=== PATIENT | female | born 1975 | race African-American/Black ===

== ENCOUNTER 2018-10-01 10:15 | Inpatient (IN) | payer OTHER ==
[2018-10-01 10:44] VITALS: BMI 32.6
--- NOTE | 2018-10-01 11:40 | HP ---
CIWA Score Nausea/Vomitin-Mild Nausea/No Vomiting Muscle Tremors: 3 Anxiety: 4-Mod. Anxious/Guarded Agitation: 3 Paroxysmal Sweats: 2 Orientation: 0-Oriented Tacttile Disturbances: 2-Mild Itch/Numbness/Burn Auditory Disturbances: 0-None Visual Disturbances: 0-None Headache: 3-Moderate CIWA-Ar Total Score: 18 - Admission Criteria OASAS Guidelines: Admission for Medically Managed Detox: Requires at least one of the followin. CIWA greater than 12 2. Seizures within the past 24 hours 3. Delirium tremens within the past 24 hours 4. Hallucinations within the past 24 hours 5. Acute intervention needed for co occurring medical disorder 6. Acute intervention needed for co occurring psychiatric disorder 7. Severe withdrawal that cannot be handled at a lower level of care (continued vomiting, continued diarrhea, abnormal vital signs) requiring intravenous medication and/or fluids 8. Admission ROS [facility] Chief Complaint: seeking help for alcohol use Allergies/Adverse Reactions: Allergies Allergy/AdvReac Type Severity Reaction Status Date / Time acetaminophen [From Tylenol] Allergy Intermediate Swelling Verified 10/01/18 10: 29 History of Present Illness: 43 y/o/f here seeking help for alcohol. She was last in rehab in July this year and states she started drinking right after she left. She has been drinking 3-4 pints of liquor every day and she starts drinking right when she gets up in the morning, her last drink was last nights. She has history of seizures with her last seizure was a year ago but she did not go to a hospital at that time. She has never taken any seizure medications. She uses $100 worth of cocaine once a month and states she last used it yesterday. She uses the cocaine by smoking it. She has been in a Methadone program for a year with [facility] where she goes everyday. She last went for Methadone on 09/29. She has also been using about $100 worth of Heroin per week and last used it yesterday. She uses the Heroin intravenously. She does not reuse or share her needles. She states when she uses Heroin she takes her Methadone dose in the morning and does not use the Heroin until later in the day. She is smoking a pack of cigarettes daily. She is living with [facility] housing currently and is unemployed. She uses her disability money for her drug use. She has a history of depression which she takes Prozac for everyday. She denies any other significant PMHx. - Ebola screening Have you traveled outside of the country in the last 21 days: No Have you had contact with anyone from an Ebola affected area: No Do you have a fever: No - Review of Systems Constitutional: No Symptoms Reported EENT: reports: No Symptoms Reported Respiratory: reports: No Symptoms reported Cardiac: reports: No Symptoms Reported GI: reports: Abdominal cramping Musculoskeletal: reports: Back Pain Integumentary: reports: No Symptoms Reported Neuro: reports: Headache, Tremors Endocrine: reports: No Symptoms Reported Hematology: reports: No Symptoms Reported Psychiatric: reports: Agitated, Anxious, Depressed Patient History - Patient Medical History Hx Anemia: No Hx Asthma: No Hx Chronic Obstructive Pulmonary Disease (COPD): No Hx Cancer: No Hx Cardiac Disorders: No Hx Congestive Heart Failure: No Hx Hypertension: No Hx Hypercholesterolemia: No Hx Pacemaker: No HX Cerebrovascular Accident: No Hx Seizures: Yes (last seizure one year ago, no medications) Hx Dementia: No Hx Diabetes: No Hx Gastrointestinal Disorders: No Hx Liver Disease: No Hx Genitourinary Disorders: No Hx Sexually Transmitted Disorders: No Hx Renal Disease (ESRD): No Hx Thyroid Disease: No Hx Human Immunodeficiency Virus (HIV): No Hx Hepatitis C: No Hx Depression: Yes Hx Suicide Attempt: No Hx Bipolar Disorder: No Hx Schizophrenia: No Other Medical History: no suicidal or homicidal ideations. - Patient Surgical History Past Surgical History: No Hx Neurologic Surgery: No Hx Cataract Extraction: No Hx Cardiac Surgery: No Hx Lung Surgery: No Hx Breast Surgery: No Hx Breast Biopsy: No Hx Abdominal Surgery: No Hx Appendectomy: No Hx Cholecystectomy: No Hx Genitourinary Surgery: No Hx Section: No Hx Orthopedic Surgery: No Hx Hysterectomy: No Anesthesia Reaction: No - PPD History Previous Implant?: Yes Documented Results: Negative w/o proof Implanted On Prior [facility] Admission?: Yes Date: 08/03/18 PPD to be Administered?: No - Reproductive History Patient is a Female of Child Bearing Age (11 -55 yrs old): Yes Last Menstrual Period: 10/01/18 Patient : No - Smoking Cessation Smoking history: Current every day smoker Have you smoked in the past 12 months: Yes Aproximately how many cigarettes per day: 20 Hx Chewing Tobacco Use: No Initiated information on smoking cessation: Yes 'Breaking Loose' booklet given: 10/01/18 - Substance & Tx. History Hx Alcohol Use: Yes Hx Substance Use: Yes Substance Use Type: Alcohol, Cocaine, Heroin - Substances abused Alcohol Substance route: Oral Frequency: Daily Amount used: 3PINTS OF VODKA Age of first use: 15 Date of last use: 09/30/18 Heroin Substance route: Injection Frequency: 1-2 times per week Amount used: 4 BAGS Age of first use: 33 Date of last use: 09/30/18 Crack Substance route: Smoking Frequency: 1-3 times last 30 days Amount used: $50-$100 Age of first use: 22 Date of last use: 09/30/18 Family Disease History - Family Disease History Family History: Denies Admission Physical Exam [facility] - Vital Signs Vital Signs: Vital Signs - 24 hr 10/01/18 10:23 Temperature 97.9 F Pulse Rate 94 H Respiratory 18 Rate Blood Pressure 127/81 - Physical General Appearance: Yes: Disheveled HEENTM: Yes: EOMI, Normocephalic Respiratory: Yes: Lungs Clear, Normal Breath Sounds, No Accessory Muscle Use Neck: Yes: Supple Cardiology: Yes: Regular Rhythm, Regular Rate, S1, S2 Abdominal: Yes: Normal Bowel Sounds, Non Tender, Soft. 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, Fully Oriented, Alert, Motor Strength 5/5, Finger to Nose Integumentary: Yes: Dry, Other (needle mcleod noted on bilateral hands and left forearm) Lymphatic: Yes: Within Normal Limits - Diagnostic (1) Alcohol use disorder Current Visit: Yes Status: Acute (2) Heroin use disorder, mild, abuse Current Visit: Yes Status: Acute (3) Cocaine use disorder Current Visit: Yes Status: Acute (4) Methadone use Current Visit: Yes Status: Acute (5) Depression Current Visit: Yes Status: Acute Cleared for Admission [facility] - Detox or Rehab [facility] Level of Care: Medically Supervised 2Day Detox Regimen/Protocol: Librium Inpatient Rehab Admission - Rehab Decision to Admit Inpatient rehab admission?: No
[2018-10-01] MEDS ORDERED: hydrOXYzine PAMOATE 25 MG CAPSULE (FP) PO PRN (12:09)
[2018-10-01] MEDS ORDERED: BISMUTH SUBSALICYLATE 262 MG/15 ML BTL PO PRN (12:09)
[2018-10-01] MEDS ORDERED: chlordiazePOXIDE HCL 25 MG CAPSULE PO PRN (12:09)
[2018-10-01] MEDS ORDERED: MENTHOL/PHENOL 1 EACH UD MM PRN (12:09)
[2018-10-01] MEDS ORDERED: ACETAMINOPHEN 325 MG TABLET (FP) PO PRN ×2 (12:09)
[2018-10-01] MEDS ORDERED: MAGNESIUM CITRATE 300 ML BOTTLE PO PRN (12:09)
[2018-10-01] MEDS ORDERED: MAGNESIUM HYDROX 2400MG/30ML ORAL SUSPENSION 30 ML CUP PO PRN (12:09)
[2018-10-01] MEDS ORDERED: NICOTINE POLACRILEX 2 MG GUM BUC PRN (12:09)
[2018-10-01] MEDS ORDERED: MELATONIN 5 MG TABLETS PO PRN (12:09)
[2018-10-01] MEDS ORDERED: IBUPROFEN 400 MG TABLET (FP) PO PRN (12:09)
[2018-10-01] MEDS: NICOTINE 14 MG/24 HOURS TOPICAL PATCH TD SCH (13:31)
[2018-10-01] MEDS: METHADONE HCL 40 MG DISPERSABLE TABLET PO SCH (13:31)
--- NOTE | 2018-10-01 13:38 | PN ---
[facility] Progress Note Note: pt here requesting detox from etoh use , reports w/d seizure 1 yr ago did not seek medical attention , pt on MMTP x 1 year highest daily dose 120 mg , prior episodes of MMTP , relapse on heroin w/ current daily use IVDU in vasiliy UE , needles from the exchange , denies sharing, denies re-using , denies OD , denies abscess . Current symptoms as above, latest Methadone 09/30/18 via [facility] . a/p ETOH abuse / dependence - Librium taper continue MMTP . d/w pt agreeable w/ POC
[2018-10-01 14:42] LABS: HEMATOCRIT 34.9 % (32.4-45.2); HEMOGLOBIN 10.8 GM/dL (10.7-15.3); MCHC 30.9 g/dl (32.0-36.0); MEAN CELL VOLUME 74.4 fl (80-96); MEAN PLT VOLUME 9.1 fl (7.5-11.1); PLATELET COUNT 261 K/MM3 (134-434); RBC 4.69 M/mm3 (3.60-5.2); RDW 26.2 % (11.6-15.6); WHITE BLOOD COUNT 5.6 K/mm3 (4.0-10.0)
[2018-10-01 14:56] LABS: ALBUMIN 3.6 g/dl (3.4-5.0); BILIRUBIN,TOTAL 0.8 mg/dL (0.2-1); BLOOD UREA NITROGEN 12.6 mg/dL (7-18); CALCIUM 8.4 mg/dL (8.5-10.1); CREATININE 0.7 mg/dL (0.55-1.3); POTASSIUM 4.2 mmol/L (3.5-5.1)
--- NOTE | 2018-10-01 16:48 | CONSULT ---
[facility] Psychiatric Consult - Data Date of interview: 10/01/18 Admission source: [facility] Identifying data: First admission to [facility] for this 43 y/o AA female self- referred for detoxification (heroin, crack/cocaine, alcohol). Interviewed at [address] [place] [address]. Patient is , a mother of three, domiciled, unemployed and supported on SSI benefits. Substance Abuse History: Discussed in this session. Patient confirms use of crack, alcohol and heroin (IV). Details in current [facility] report as follows : Smoking history: Current every day smoker. Have you smoked in the past 12 months: Yes. Aproximately how many cigarettes per day: 20. Hx Chewing Tobacco Use: No. Initiated information on smoking cessation: Yes. 'Breaking Loose' booklet given: 10/01/18. - Substance & Tx. History. Hx Alcohol Use: Yes. Hx Substance Use: Yes. Substance Use Type: Alcohol, Cocaine, Heroin. - Substances abused. Alcohol. Substance route: Oral. Frequency: Daily. Amount used: 3PINTS OF VODKA. Age of first use: 15. Date of last use: . Heroin. Substance route: Injection. Frequency: 1-2 times per week. Amount used: 4 BAGS. Age of first use: 33. Date of last use: 09/30/18. Crack. Substance route: Smoking. Frequency: 1-3 times last 30 days. Amount used: $50-$100. Age of first use: 22. Date of last use: 09/30/18 Medical History: Medical profile is consistent with obesity, herniated discs, heel spur and history of withdrawal-related seizures. Psychiatric History: Patient admits to a history of three psychiatric hospitalizations ([facility]). Diagnosed with MDD and managed with prozac and trazodone (self-report). Ms Cordova is also known to [facility] in [facility]. Maintained on methadone (120 mg/day). Patient reports a history of suicide attempt, years ago, via overdose with medications. Physical/Sexual Abuse/Trauma History: Not discussed. Patient declines. Additional Comment: No toxicology available for review. Mental Status Exam - Mental Status Exam Alert and Oriented to: Time, Place, Person Cognitive Function: Good Patient Appearance: Well Groomed (overweight) Mood: Nervous, Withdrawn, Anxious Affect: Mood Congruent, Constricted Patient Behavior: Fatigued, Appropriate, Cooperative Speech Pattern: Clear Voice Loudness: Normal Thought Process: Goal Oriented Thought Disorder: Not Present Hallucinations: Denies Suicidal Ideation: Denies Homicidal Ideation: Denies Insight/Judgement: Poor Sleep: Poorly, Difficulty falling asleep Appetite: Good Muscle strength/Tone: Normal Gait/Station: Normal Psychiatric Findings - Problem List ([place] 1, 2,3) (1) Opioid dependence on agonist therapy Current Visit: Yes Status: Chronic (2) Alcohol use disorder Current Visit: Yes Status: Chronic (3) Cocaine use disorder Current Visit: Yes Status: Chronic (4) Heroin use disorder, mild, abuse Current Visit: Yes Status: Chronic (5) Nicotine use disorder Current Visit: Yes Status: Chronic (6) Substance induced mood disorder Current Visit: Yes Status: Chronic (7) Insomnia Current Visit: Yes Status: Chronic (8) Depressive disorder Current Visit: Yes Status: Chronic - Initial Treatment Plan Initial Treatment Plan: Psychoeducation. Sleep hygiene. Detoxification. Support. Groups. AA/NA meetings. Resumed at patient's request : prozac 20 mg po daily + trazodone 50 mg po hs. Side effects/benefits discussed with patient.Ms Cordova is in agreement with this plan of care. Observation.
[2018-10-01] MEDS: chlordiazePOXIDE HCL 25 MG CAPSULE PO SCH ×2 (17:15→22:17)
[2018-10-01] MEDS: THIAMINE HCL 100 MG TABLET (FP) PO SCH (22:17)
[2018-10-02] MEDS: chlordiazePOXIDE HCL 25 MG CAPSULE PO SCH ×4 (06:09→22:35)
[2018-10-02] MEDS: METHADONE HCL 40 MG DISPERSABLE TABLET PO SCH (06:25)
[2018-10-02] MEDS: NICOTINE 14 MG/24 HOURS TOPICAL PATCH TD SCH (11:00)
[2018-10-02] MEDS: PRENATAL VITAMINS W/ FOLIC ACID TABLET (FP) PO SCH (11:01)
[2018-10-02] MEDS: FLUoxetine HCL 20 MG CAPSULE (FP) PO SCH (11:04)
[2018-10-02] MEDS ORDERED: IBUPROFEN 400 MG TABLET (FP) PO PRN (11:58)
[2018-10-02] MEDS ORDERED: PROCHLORPERAZINE MALEATE 5 MG TABLET PO PRN (11:59)
--- NOTE | 2018-10-02 15:25 | PN ---
S CIWA - CIWA Score Nausea/Vomitin Muscle Tremors: None Anxiety: 4-Mod. Anxious/Guarded Agitation: 2 Paroxysmal Sweats: No Perspiration Orientation: 0-Oriented Tacttile Disturbances: 1-Very Mild Itch/Numbness Auditory Disturbances: 0-None Visual Disturbances: 2-Mild Sensitivity Headache: 0-None Present CIWA-Ar Total Score: 12 [facility] Progress Note (SOAP) Subjective: Stomach Cramping, Anxious, Nausea, Body Aches, Constipation. Objective: PATIENT A & O X 3, OBSERVED AMBULATING ON UNIT UNASSISTED. IN NO ACUTE DISTRESS. 10/02/18 15:23 Vital Signs Temperature 97.4 F L 10/02/18 09:43 Pulse Rate 68 10/02/18 09:43 Respiratory Rate 18 10/02/18 09:43 Blood Pressure 110/80 10/02/18 09:43 O2 Sat by Pulse Oximetry (%) Laboratory Tests 10/01/18 10/01/18 10/01/18 12:15 12:15 12:15 WBC 5.6 RBC 4.69 Hgb 10.8 Hct 34.9 MCV 74.4 L MCH 23.0 L MCHC 30.9 L RDW 26.2 H Plt Count 261 MPV 9.1 Sodium 139 Potassium 4.2 Chloride 107 Carbon Dioxide 25 Anion Gap 7 L BUN 12.6 Creatinine 0.7 Est GFR (CKD-EPI)AfAm 123.86 Est GFR (CKD-EPI)NonAf 106.87 Random Glucose 87 Calcium 8.4 L Total Bilirubin 0.8 AST 35 ALT 23 Alkaline Phosphatase 131 H Total Protein 8.0 Albumin 3.6 RPR Titer Nonreactive LABS NOTED. TB / QFT TEST RESULTS PENDING. 10/02/18 15:24 Assessment: 10/02/18 15:24 WITHDRAWAL SYMPTOMS. Plan: CONTINUE DETOX. INCREASE DAILY PO WATER INTAKE. PRN MOM FOR CONSTIPATION. PRN COMPAZINE PO FOR NAUSEA.
[2018-10-02] MEDS: THIAMINE HCL 100 MG TABLET (FP) PO SCH (22:35)
[2018-10-02] MEDS: METHYL SALICYLATE/MENTHOL OINT 30 GM TUBE TP SCH (22:52)
[2018-10-02] MEDS: IBUPROFEN 600 MG TABLET (FP) PO PRN (22:53)
[2018-10-03] MEDS: METHADONE HCL 40 MG DISPERSABLE TABLET PO SCH (05:30)
[2018-10-03] MEDS: IBUPROFEN 600 MG TABLET (FP) PO PRN ×3 (05:58→22:17)
[2018-10-03] MEDS: chlordiazePOXIDE HCL 25 MG CAPSULE PO SCH ×4 (05:58→22:17)
[2018-10-03] MEDS: NICOTINE 14 MG/24 HOURS TOPICAL PATCH TD SCH (10:36)
[2018-10-03] MEDS: PRENATAL VITAMINS W/ FOLIC ACID TABLET (FP) PO SCH (10:36)
[2018-10-03] MEDS: FLUoxetine HCL 20 MG CAPSULE (FP) PO SCH (10:36)
[2018-10-03] MEDS: METHYL SALICYLATE/MENTHOL OINT 30 GM TUBE TP SCH ×2 (11:45→22:17)
--- NOTE | 2018-10-03 11:47 | PN ---
[facility] CIWA - CIWA Score Nausea/Vomitin-Mild Nausea/No Vomiting Muscle Tremors: 2 Anxiety: 1-Mildly Anxious Agitation: 2 Paroxysmal Sweats: 1-Minimal Palms Moist Orientation: 0-Oriented Tacttile Disturbances: 1-Very Mild Itch/Numbness Auditory Disturbances: 0-None Visual Disturbances: 0-None Headache: 0-None Present CIWA-Ar Total Score: 8 S Progress Note (SOAP) Subjective: doing ok today ambulating on hallway less tremor tolerate breakfast well mild anxiousness Objective: 10/03/18 11:50 Vital Signs Temperature 96.3 F L 10/03/18 09:35 Pulse Rate 62 10/03/18 09:35 Respiratory Rate 18 10/03/18 09:35 Blood Pressure 109/72 10/03/18 09:35 O2 Sat by Pulse Oximetry (%) Laboratory Last Values WBC 5.6 K/mm3 (4.0-10.0) 10/01/18 12:15 RBC 4.69 M/mm3 (3.60-5.2) 10/01/18 12:15 Hgb 10.8 GM/dL (10.7-15.3) 10/01/18 12:15 Hct 34.9 % (32.4-45.2) 10/01/18 12:15 MCV 74.4 fl (80-96) L 10/01/18 12:15 MCH 23.0 pg (25.7-33.7) L 10/01/18 12:15 MCHC 30.9 g/dl (32.0-36.0) L 10/01/18 12:15 RDW 26.2 % (11.6-15.6) H 10/01/18 12:15 Plt Count 261 K/MM3 (134-434) 10/01/18 12:15 MPV 9.1 fl (7.5-11.1) 10/01/18 12:15 Sodium 139 mmol/L (136-145) 10/01/18 12:15 Potassium 4.2 mmol/L (3.5-5.1) 10/01/18 12:15 Chloride 107 mmol/L (98-107) 10/01/18 12:15 Carbon Dioxide 25 mmol/L (21-32) 10/01/18 12:15 Anion Gap 7 MMOL/L (8-16) L 10/01/18 12:15 BUN 12.6 mg/dL (7-18) 10/01/18 12:15 Creatinine 0.7 mg/dL (0.55-1.3) 10/01/18 12:15 Est GFR (CKD-EPI)AfAm 123.86 10/01/18 12:15 Est GFR (CKD-EPI)NonAf 106.87 10/01/18 12:15 Random Glucose 87 mg/dL (74-106) 10/01/18 12:15 Calcium 8.4 mg/dL (8.5-10.1) L 10/01/18 12:15 Total Bilirubin 0.8 mg/dL (0.2-1) 10/01/18 12:15 AST 35 U/L (15-37) 10/01/18 12:15 ALT 23 U/L (13-61) 10/01/18 12:15 Alkaline Phosphatase 131 U/L (45-117) H 10/01/18 12:15 Total Protein 8.0 g/dl (6.4-8.2) 10/01/18 12:15 Albumin 3.6 g/dl (3.4-5.0) 10/01/18 12:15 POC Urine HCG, Qual Negative 10/01/18 11:36 RPR Titer Nonreactive (NONREACTIVE) 10/01/18 12:15 lab noted Assessment: 10/03/18 11:50 alcohol withdrawal sx Plan: continue alcohol detox
[2018-10-03] MEDS: MAG HYDROX/AL HYDROX/SIMETH 30 ML UNIT-DOSE CUP PO PRN (19:17)
[2018-10-03] MEDS ORDERED: ONDANSETRON *ODT* 4 MG TABLET SL PRN (19:22)
--- NOTE | 2018-10-03 19:25 | PN ---
[facility] Progress Note Note: patient has vomiting,zofran 4 mg sl prn for nausea and vomiting Vital Signs Temperature 97.4 F L 10/03/18 17:35 Pulse Rate 66 10/03/18 17:35 Respiratory Rate 18 10/03/18 17:35 Blood Pressure 128/85 10/03/18 17:35 O2 Sat by Pulse Oximetry (%) withdrawal symptom continue monitoring
[2018-10-03] MEDS: THIAMINE HCL 100 MG TABLET (FP) PO SCH (22:17)
[2018-10-04] MEDS ORDERED: chlordiazePOXIDE HCL 10 MG CAPSULE PO PRN
[2018-10-04] MEDS: METHADONE HCL 40 MG DISPERSABLE TABLET PO SCH (06:04)
[2018-10-04] MEDS: chlordiazePOXIDE HCL 10 MG CAPSULE PO SCH ×4 (06:04→22:12)
[2018-10-04] MEDS: IBUPROFEN 600 MG TABLET (FP) PO PRN ×2 (06:04→14:48)
[2018-10-04] MEDS: METHYL SALICYLATE/MENTHOL OINT 30 GM TUBE TP SCH ×2 (10:08→22:13)
[2018-10-04] MEDS: NICOTINE 14 MG/24 HOURS TOPICAL PATCH TD SCH (10:08)
[2018-10-04] MEDS: PRENATAL VITAMINS W/ FOLIC ACID TABLET (FP) PO SCH (10:08)
[2018-10-04] MEDS: FLUoxetine HCL 20 MG CAPSULE (FP) PO SCH (10:08)
--- NOTE | 2018-10-04 11:18 | PN ---
S CIWA - CIWA Score Nausea/Vomitin-Mild Nausea/No Vomiting Muscle Tremors: 2 Anxiety: 2 Agitation: 1-Slight > Activity Paroxysmal Sweats: No Perspiration Orientation: 0-Oriented Tacttile Disturbances: 0-None Auditory Disturbances: 0-None Visual Disturbances: 0-None Headache: 0-None Present CIWA-Ar Total Score: 6 [facility] Progress Note (SOAP) Subjective: no nausea no vomiting today tolerate librium and methadone well less tremor no headaches Objective: 10/04/18 11:16 Vital Signs Temperature 98 F 10/04/18 09:04 Pulse Rate 72 10/04/18 09:04 Respiratory Rate 20 10/04/18 09:04 Blood Pressure 97/70 10/04/18 09:04 O2 Sat by Pulse Oximetry (%) Laboratory Last Values WBC 5.6 K/mm3 (4.0-10.0) 10/01/18 12:15 RBC 4.69 M/mm3 (3.60-5.2) 10/01/18 12:15 Hgb 10.8 GM/dL (10.7-15.3) 10/01/18 12:15 Hct 34.9 % (32.4-45.2) 10/01/18 12:15 MCV 74.4 fl (80-96) L 10/01/18 12:15 MCH 23.0 pg (25.7-33.7) L 10/01/18 12:15 MCHC 30.9 g/dl (32.0-36.0) L 10/01/18 12:15 RDW 26.2 % (11.6-15.6) H 10/01/18 12:15 Plt Count 261 K/MM3 (134-434) 10/01/18 12:15 MPV 9.1 fl (7.5-11.1) 10/01/18 12:15 Sodium 139 mmol/L (136-145) 10/01/18 12:15 Potassium 4.2 mmol/L (3.5-5.1) 10/01/18 12:15 Chloride 107 mmol/L (98-107) 10/01/18 12:15 Carbon Dioxide 25 mmol/L (21-32) 10/01/18 12:15 Anion Gap 7 MMOL/L (8-16) L 10/01/18 12:15 BUN 12.6 mg/dL (7-18) 10/01/18 12:15 Creatinine 0.7 mg/dL (0.55-1.3) 10/01/18 12:15 Est GFR (CKD-EPI)AfAm 123.86 10/01/18 12:15 Est GFR (CKD-EPI)NonAf 106.87 10/01/18 12:15 Random Glucose 87 mg/dL (74-106) 10/01/18 12:15 Calcium 8.4 mg/dL (8.5-10.1) L 10/01/18 12:15 Total Bilirubin 0.8 mg/dL (0.2-1) 10/01/18 12:15 AST 35 U/L (15-37) 10/01/18 12:15 ALT 23 U/L (13-61) 10/01/18 12:15 Alkaline Phosphatase 131 U/L (45-117) H 10/01/18 12:15 Total Protein 8.0 g/dl (6.4-8.2) 10/01/18 12:15 Albumin 3.6 g/dl (3.4-5.0) 10/01/18 12:15 POC Urine HCG, Qual Negative 10/01/18 11:36 RPR Titer Nonreactive (NONREACTIVE) 10/01/18 12:15 TB Test (QFT) Nil 0.33 IU/mL (.) 10/01/18 13:40 TB Test (QFT) Mitogen >10.00 IU/mL (.) 10/01/18 13:40 TB Test (QFT) Antigen 3.48 IU/mL (.) 10/01/18 13:40 TB Test (QFT) Positive (Negative) H 10/01/18 13:40 TB Positive Criteria (.) 10/01/18 13:40 lab noted 10/04/18 11:18 chest x ray Assessment: 10/04/18 11:21 alcohol withdrawal sx +PPD Plan: continue alcohol deox chest x ray ordered
[2018-10-04] MEDS: THIAMINE HCL 100 MG TABLET (FP) PO SCH (22:12)
[2018-10-05] MEDS: chlordiazePOXIDE HCL 10 MG CAPSULE PO SCH ×2 (05:47→17:05)
[2018-10-05] MEDS: METHADONE HCL 40 MG DISPERSABLE TABLET PO SCH (05:47)
[2018-10-05] MEDS: IBUPROFEN 600 MG TABLET (FP) PO PRN ×2 (06:20→17:05)
[2018-10-05] MEDS: NICOTINE 14 MG/24 HOURS TOPICAL PATCH TD SCH (09:58)
[2018-10-05] MEDS: PRENATAL VITAMINS W/ FOLIC ACID TABLET (FP) PO SCH (09:58)
[2018-10-05] MEDS: FLUoxetine HCL 20 MG CAPSULE (FP) PO SCH (09:58)
[2018-10-05] MEDS: METHYL SALICYLATE/MENTHOL OINT 30 GM TUBE TP SCH ×2 (09:58→22:34)
--- NOTE | 2018-10-05 15:04 | PN ---
S CIWA - CIWA Score Nausea/Vomitin-No Nausea/No Vomiting Muscle Tremors: 1-None Visible, but [place] Anxiety: 2 Agitation: 1-Slight > Activity Paroxysmal Sweats: No Perspiration Orientation: 0-Oriented Tacttile Disturbances: 0-None Auditory Disturbances: 0-None Visual Disturbances: 0-None Headache: 0-None Present CIWA-Ar Total Score: 4 [facility] Progress Note (SOAP) Subjective: patient requests xanax that she was been prescribed by the doctor risks for addiction of xanax discuss encourage inpatient rehab Objective: 10/05/18 15:01 Vital Signs Temperature 98.6 F 10/05/18 13:03 Pulse Rate 73 10/05/18 13:03 Respiratory Rate 18 10/05/18 13:03 Blood Pressure 117/69 10/05/18 13:03 O2 Sat by Pulse Oximetry (%) Laboratory Last Values WBC 5.6 K/mm3 (4.0-10.0) 10/01/18 12:15 RBC 4.69 M/mm3 (3.60-5.2) 10/01/18 12:15 Hgb 10.8 GM/dL (10.7-15.3) 10/01/18 12:15 Hct 34.9 % (32.4-45.2) 10/01/18 12:15 MCV 74.4 fl (80-96) L 10/01/18 12:15 MCH 23.0 pg (25.7-33.7) L 10/01/18 12:15 MCHC 30.9 g/dl (32.0-36.0) L 10/01/18 12:15 RDW 26.2 % (11.6-15.6) H 10/01/18 12:15 Plt Count 261 K/MM3 (134-434) 10/01/18 12:15 MPV 9.1 fl (7.5-11.1) 10/01/18 12:15 Sodium 139 mmol/L (136-145) 10/01/18 12:15 Potassium 4.2 mmol/L (3.5-5.1) 10/01/18 12:15 Chloride 107 mmol/L (98-107) 10/01/18 12:15 Carbon Dioxide 25 mmol/L (21-32) 10/01/18 12:15 Anion Gap 7 MMOL/L (8-16) L 10/01/18 12:15 BUN 12.6 mg/dL (7-18) 10/01/18 12:15 Creatinine 0.7 mg/dL (0.55-1.3) 10/01/18 12:15 Est GFR (CKD-EPI)AfAm 123.86 10/01/18 12:15 Est GFR (CKD-EPI)NonAf 106.87 10/01/18 12:15 Random Glucose 87 mg/dL (74-106) 10/01/18 12:15 Calcium 8.4 mg/dL (8.5-10.1) L 10/01/18 12:15 Total Bilirubin 0.8 mg/dL (0.2-1) 10/01/18 12:15 AST 35 U/L (15-37) 10/01/18 12:15 ALT 23 U/L (13-61) 10/01/18 12:15 Alkaline Phosphatase 131 U/L (45-117) H 10/01/18 12:15 Total Protein 8.0 g/dl (6.4-8.2) 10/01/18 12:15 Albumin 3.6 g/dl (3.4-5.0) 10/01/18 12:15 POC Urine HCG, Qual Negative 10/01/18 11:36 RPR Titer Nonreactive (NONREACTIVE) 10/01/18 12:15 TB Test (QFT) Nil 0.33 IU/mL (.) 10/01/18 13:40 TB Test (QFT) Mitogen >10.00 IU/mL (.) 10/01/18 13:40 TB Test (QFT) Antigen 3.48 IU/mL (.) 10/01/18 13:40 TB Test (QFT) Positive (Negative) H 10/01/18 13:40 TB Positive Criteria (.) 10/01/18 13:40 lab noted chest x ray negative 10/05/18 15:03 Assessment: 10/05/18 15:03 alcohol withdrawal sx Plan: continue alcohol detox
[2018-10-05] MEDS: MAG HYDROX/AL HYDROX/SIMETH 30 ML UNIT-DOSE CUP PO PRN (18:55)
[2018-10-05] MEDS: THIAMINE HCL 100 MG TABLET (FP) PO SCH (22:34)
[2018-10-06] MEDS ORDERED: chlordiazePOXIDE HCL 10 MG CAPSULE PO ONE (05:00)
[2018-10-06] MEDS: METHADONE HCL 40 MG DISPERSABLE TABLET PO SCH (06:01)
[2018-10-06 09:10] VITALS: BP 110/73; PULSE 91; TEMP 98.6
--- NOTE | 2018-10-06 13:42 | DS ---
[facility] Detox Discharge Summary Admission Date: 10/01/18 Discharge Date: 10/06/18 - History Present History: Alcohol Dependence Additional Comments: 43 years old female admitted on 10/02/18 for alcohol withdrawal stabilization completed detox regimen [facility] Pertinent Past History: bring in medication list and lab report to aftercare facility and follow up with critical access hospital services - Physical Exam Results Vital Signs: Vital Signs Temperature 98.6 F 10/06/18 09:09 Pulse Rate 91 H 10/06/18 09:09 Respiratory Rate 18 10/06/18 09:09 Blood Pressure 110/73 10/06/18 09:09 O2 Sat by Pulse Oximetry (%) Pertinent Admission Physical Exam Findings: alcohol withdrawal sx Laboratory Last Values WBC 5.6 K/mm3 (4.0-10.0) 10/01/18 12:15 RBC 4.69 M/mm3 (3.60-5.2) 10/01/18 12:15 Hgb 10.8 GM/dL (10.7-15.3) 10/01/18 12:15 Hct 34.9 % (32.4-45.2) 10/01/18 12:15 MCV 74.4 fl (80-96) L 10/01/18 12:15 MCH 23.0 pg (25.7-33.7) L 10/01/18 12:15 MCHC 30.9 g/dl (32.0-36.0) L 10/01/18 12:15 RDW 26.2 % (11.6-15.6) H 10/01/18 12:15 Plt Count 261 K/MM3 (134-434) 10/01/18 12:15 MPV 9.1 fl (7.5-11.1) 10/01/18 12:15 Sodium 139 mmol/L (136-145) 10/01/18 12:15 Potassium 4.2 mmol/L (3.5-5.1) 10/01/18 12:15 Chloride 107 mmol/L (98-107) 10/01/18 12:15 Carbon Dioxide 25 mmol/L (21-32) 10/01/18 12:15 Anion Gap 7 MMOL/L (8-16) L 10/01/18 12:15 BUN 12.6 mg/dL (7-18) 10/01/18 12:15 Creatinine 0.7 mg/dL (0.55-1.3) 10/01/18 12:15 Est GFR (CKD-EPI)AfAm 123.86 10/01/18 12:15 Est GFR (CKD-EPI)NonAf 106.87 10/01/18 12:15 Random Glucose 87 mg/dL (74-106) 10/01/18 12:15 Calcium 8.4 mg/dL (8.5-10.1) L 10/01/18 12:15 Total Bilirubin 0.8 mg/dL (0.2-1) 10/01/18 12:15 AST 35 U/L (15-37) 10/01/18 12:15 ALT 23 U/L (13-61) 10/01/18 12:15 Alkaline Phosphatase 131 U/L (45-117) H 10/01/18 12:15 Total Protein 8.0 g/dl (6.4-8.2) 10/01/18 12:15 Albumin 3.6 g/dl (3.4-5.0) 10/01/18 12:15 POC Urine HCG, Qual Negative 10/01/18 11:36 RPR Titer Nonreactive (NONREACTIVE) 10/01/18 12:15 TB Test (QFT) Nil 0.33 IU/mL (.) 10/01/18 13:40 TB Test (QFT) Mitogen >10.00 IU/mL (.) 10/01/18 13:40 TB Test (QFT) Antigen 3.48 IU/mL (.) 10/01/18 13:40 TB Test (QFT) Positive (Negative) H 10/01/18 13:40 TB Positive Criteria (.) 10/01/18 13:40 lab noted positive ppd negative chest x ray - Treatment Hospital Course: Detox Protocol Followed, Detoxed Safely, Responded well, Discharged Condition Good, Rehab Referral Accepted Patient has Accepted [facility] Ref[facility] - Medication Discharge Medications: Ambulatory Orders Fluoxetine HCl [Prozac] 20 mg PO DAILY 10/01/18 Methadone [Dolophine -] 120 mg PO DAILY 10/01/18 - Diagnosis (1) Alcohol dependence with uncomplicated withdrawal Status: Acute (2) Methadone maintenance therapy patient Status: Chronic (3) Positive PPD Status: Resolved (4) Substance induced mood disorder Status: Suspected (5) Nicotine use disorder Status: Acute - AMA Did Patient Leave Against Medical Advice: No
== END 2018-10-06 09:20 | disposition home or self-care (01) | DRG 897 ==
LOC: YASAS 10:15 → Y3N 12:30
PROVIDERS: ADMIT Surgery; ATTEND Surgery
PROC: HZ2ZZZZ Detoxification Services for Substance Abuse Treatment (ICD-10-PCS; principal; 2018-10-01)
DX: F10.230 Alcohol dependence with withdrawal, uncomplicated (principal); F11.20 Opioid dependence, uncomplicated; F14.10 Cocaine abuse, uncomplicated; F17.210 Nicotine dependence, cigarettes, uncomplicated; F19.24 Other psychoactive substance dependence with psychoactive substance-induced mood disorder; F32.9 Major depressive disorder, single episode, unspecified; G47.00 Insomnia, unspecified; R76.11 Nonspecific reaction to tuberculin skin test without active tuberculosis; Z86.69 Personal history of other diseases of the nervous system and sense organs
CPT/HCPCS: 36415; 71046-TC-FY; 80053; 81025; 85027; 86480; 86593

== ENCOUNTER 2019-09-21 10:21 | Inpatient (IN) | payer OTHER ==
--- NOTE | 2019-09-21 10:57 | BHS.RME ---
Substance Use & Tx History - Last Treatment Date of last treatment: 2019 Treatment type: Substance Use Disorder ([place]) Where was last treatment: Detox Physical/Psych/Mental Status - Behavior General Behavior: Increased activity (restlessness, agitation) Eye Contact: Normal - Cooperativeness Cooperativeness: Cooperative - Thinking Thought Processes: Tight, Logical, Goal Directed - Physical Health Problems Is patient presently having any pain?: No Does patient presently have any injuries (include location): No Does patient currently have a fever: No Is patient : No COWS - Scale Resting Pulse: 0= OR 80 or Below Sweatin= Chills/Flushing Restless Observation: 1= Difficult to Sit Still Pupil Size: 1= Pupils >than Normal Bone or Joint Aches: 0= None Runny Nose/ Eye Tearin= Nasal Congestion GI Upset > 30mins: 2= Nausea/Diarrhea Tremor Observation: 2= Slight Tremor Visible Yawning Observation: 1= 1-2x During Session Anxiety or Irritability: 2=Irritable/Anxious Goose Flesh Skin: 0=Smooth Skin COWS Score: 11 CIWA Nausea/Vomitin Muscle Tremors: 3 Anxiety: 5 Agitation: 3 Paroxysmal Sweats: No Perspiration Orientation: 0-Oriented Tacttile Disturbances: 1-Very Mild Itch/Numbness Auditory Disturbances: 0-None Visual Disturbances: 0-None Headache: 0-None Present CIWA-Ar Total Score: 15
[2019-09-21 11:36] VITALS: BMI 30.4
--- NOTE | 2019-09-21 12:01 | HP ---
COWS - Scale Resting Pulse: 0= NM 80 or Below Sweatin= Chills/Flushing Restless Observation: 1= Difficult to Sit Still Pupil Size: 1= Pupils >than Normal Bone or Joint Aches: 0= None Runny Nose/ Eye Tearin= Nasal Congestion GI Upset > 30mins: 2= Nausea/Diarrhea Tremor Observation: 2= Slight Tremor Visible Yawning Observation: 1= 1-2x During Session Anxiety or Irritability: 2=Irritable/Anxious Goose Flesh Skin: 0=Smooth Skin COWS Score: 11 CIWA Score Nausea/Vomitin Muscle Tremors: 3 Anxiety: 5 Agitation: 3 Paroxysmal Sweats: No Perspiration Orientation: 0-Oriented Tacttile Disturbances: 1-Very Mild Itch/Numbness Auditory Disturbances: 0-None Visual Disturbances: 0-None Headache: 0-None Present CIWA-Ar Total Score: 15 - Admission Criteria OASAS Guidelines: Admission for Medically Managed Detox: Requires at least one of the followin. CIWA greater than 12 2. Seizures within the past 24 hours 3. Delirium tremens within the past 24 hours 4. Hallucinations within the past 24 hours 5. Acute intervention needed for co occurring medical disorder 6. Acute intervention needed for co occurring psychiatric disorder 7. Severe withdrawal that cannot be handled at a lower level of care (continued vomiting, continued diarrhea, abnormal vital signs) requiring intravenous medication and/or fluids 8. Admitting History and Physical - Admission Chief Complaint: Ms. Cordova is a 44 yo woman who presents stating " I want to get clean and sober and stay that way". She requests admission to detox from alcohol use diosrder. She is on methadone maintenance. History of Present Illness: Ms. Cordova is a 44 yo woman who presents stating " I want to get clean and sober and stay that way". She requests admission to detox from alcohol use diosrder. She is on methadone maintenance. PMH: L45 herniated disc, bilateral carpal tunnel syndrome, hx of positive PPD/last chest xray September 2018 negative PSH: 2 ectopic pregnancies, umbilical hernia repair, lef thand tendon repair, gastric bypass Psych: schizophrenia (IM Invega 2 weeks ago, monthly injection) Substance use hx Alcohol: 3-4 pints Vodka daily, began age 15 y, last drink today at 3 am "watered down". No seizures. Has had black outs, last time was 4 months ago. 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 Has had 3 overdoses, last OD one year ago. Has Narcan at home Methadone: 150 mg [facility], medicated today Nicotine: 1ppd, began age 15y Last Treatment Date of last treatment: 2018 Treatment type: Substance Use Disorder ([place]ATISHA) Where was last treatment: Detox History Source: Patient Limitations to Obtaining History: No Limitations - Past Medical History ...LMP: 11/28/18 ...: No - Smoking History Smoking history: Current every day smoker Have you smoked in the past 12 months: Yes Aproximately how many cigarettes per day: 20 - Alcohol/Substance Use Hx Alcohol Use: Yes Admission ROS S - HPI Allergies/Adverse Reactions: Allergies Allergy/AdvReac Type Severity Reaction Status Date / Time acetaminophen [From Tylenol] Allergy Intermediate Swelling Verified 09/21/19 11:42 Exam Limitations: No Limitations - Ebola screening Have you been sick,other than usual withdrawal symptoms: No Do you have a fever: No - Review of Systems Constitutional: Unintentional Wgt. Loss (20 lb weight loss in one month) EENT: reports: No Symptoms Reported Respiratory: reports: SOB with Exertion Cardiac: reports: No Symptoms Reported GI: reports: Nausea Musculoskeletal: reports: No Symptoms Reported Integumentary: reports: Pruritus Neuro: reports: No Symptoms reported Endocrine: reports: No Symptoms Reported Hematology: reports: No Symptoms Reported Psychiatric: reports: Anxious Patient History - Patient Medical History Hx Anemia: No Hx Asthma: No Hx Chronic Obstructive Pulmonary Disease (COPD): No Hx Cancer: No Hx Cardiac Disorders: No Hx Congestive Heart Failure: No Hx Hypertension: No Hx Hypercholesterolemia: No Hx Pacemaker: No HX Cerebrovascular Accident: No Hx Seizures: No Hx Dementia: No Hx Diabetes: No Hx Gastrointestinal Disorders: No Hx Liver Disease: No Hx Genitourinary Disorders: No Hx Sexually Transmitted Disorders: No Hx Renal Disease (ESRD): No Hx Thyroid Disease: No Hx Human Immunodeficiency Virus (HIV): No Hx Hepatitis C: No Hx Depression: Yes Hx Suicide Attempt: No Hx Bipolar Disorder: No Hx Schizophrenia: Yes - Patient Surgical History Past Surgical History: Yes Hx Neurologic Surgery: No Hx Cataract Extraction: No Hx Cardiac Surgery: No Hx Lung Surgery: No Hx Breast Surgery: No Hx Breast Biopsy: No Hx Abdominal Surgery: Yes (gastric bypass in 2003) Hx Appendectomy: No Hx Cholecystectomy: No Hx Genitourinary Surgery: No Hx Section: No Hx Orthopedic Surgery: No Hx Hysterectomy: No Anesthesia Reaction: No - PPD History Previous Implant?: Yes Documented Results: Positive w/proof Implanted On Prior R Admission?: No Date: 08/03/18 Results: CXR 10/04/18 neg - Reproductive History Last Menstrual Period: 11/28/18 Patient : No - Smoking Cessation Smoking history: Current every day smoker Have you smoked in the past 12 months: Yes Aproximately how many cigarettes per day: 20 Hx Chewing Tobacco Use: No Initiated information on smoking cessation: Yes 'Breaking Loose' booklet given: 09/21/19 - Substances abused Alcohol Substance route: Oral Frequency: Daily Amount used: 3-4 pints vodka Age of first use: 15 Date of last use: 09/21/19 Heroin Substance route: Inhalation Frequency: Daily Amount used: 10 bags Age of first use: 33 Date of last use: 09/20/19 Admission Physical Exam S - Vital Signs Vital Signs: Vital Signs - 24 hr 09/21/19 11:34 Temperature 96.9 F L Pulse Rate 78 Respiratory 18 Rate Blood Pressure 127/88 - Physical General Appearance: Yes: No Apparent Distress, Nourished, Other (sleepy) HEENTM: Yes: EOMI, Hearing grossly Normal, Normocephalic, Normal Voice Respiratory: Yes: Lungs Clear, Normal Breath Sounds, No Accessory Muscle Use Neck: Yes: Within Normal Limits, No masses,lesions,Nodules, Supple, Trachea in good position Breast: Yes: Breast Exam Deferred Cardiology: Yes: Regular Rhythm, Regular Rate, S1, S2 Abdominal: Yes: Non Tender, Flat, Soft, Decreased BS Genitourinary: Yes: Other (deferred) Back: Yes: Normal Inspection Musculoskeletal: Yes: Gait Steady Extremities: Yes: Normal Inspection, Non-Tender Neurological: Yes: Normal Response, Other (sleepy) Integumentary: Yes: Normal Color, Dry, Warm - Diagnostic (1) Schizophrenia Current Visit: Yes Status: Chronic (2) Herniated lumbar disc without myelopathy Current Visit: No Status: Chronic (3) Alcohol dependence with uncomplicated withdrawal Current Visit: Yes Status: Acute (4) Nicotine use disorder Current Visit: Yes Status: Acute (5) Methadone maintenance therapy patient Current Visit: Yes Status: Chronic Cleared for Admission B[facility] - Detox or Rehab [facility] Level of Care: Medically Managed Detox Regimen/Protocol: Librium Breathalyzer - Breathalyzer Breathalyzer: 0 Urine Drug Screen - Test Device Lot number: [id number] Expiration date: 11/27/20 - Control Is test valid?: Yes - Results Drug screen NEGATIVE: No Urine drug screen results: FEN-Fentanyl, MOP-Opiates, MTD-Methadone Inpatient Rehab Admission - Rehab Decision to Admit Inpatient rehab admission?: No
[2019-09-21] MEDS ORDERED: MAG HYDROX/AL HYDROX/SIMETH 30 ML UNIT-DOSE CUP PO PRN (12:09)
[2019-09-21] MEDS ORDERED: ACETAMINOPHEN 325 MG TABLET (FP) PO PRN ×2 (12:09)
[2019-09-21] MEDS ORDERED: MAGNESIUM CITRATE 300 ML BOTTLE PO PRN (12:09)
[2019-09-21] MEDS ORDERED: NICOTINE POLACRILEX 2 MG GUM BUC PRN (12:09)
[2019-09-21] MEDS ORDERED: chlordiazePOXIDE HCL 25 MG CAPSULE PO PRN (12:09)
[2019-09-21] MEDS ORDERED: MAGNESIUM HYDROX 2400MG/30ML ORAL SUSPENSION 30 ML CUP PO PRN (12:09)
[2019-09-21] MEDS ORDERED: ONDANSETRON *ODT* 4 MG TABLET SL PRN (12:09)
[2019-09-21] MEDS ORDERED: MENTHOL/PHENOL 1 EACH UD MM PRN (12:09)
[2019-09-21] MEDS ORDERED: METHOCARBAMOL 500 MG TABLET PO PRN (12:09)
[2019-09-21] MEDS ORDERED: BISMUTH SUBSALICYLATE 524 MG/30 ML UD PO PRN (12:09)
[2019-09-21] MEDS ORDERED: NICOTINE 7 MG/24 HOURS TOPICAL PATCH TD SCH (12:30)
--- NOTE | 2019-09-21 13:35 | EKG ---
Test Reason : Blood Pressure : / mmHG Vent. Rate : 065 BPM Atrial Rate : 065 BPM P-R Int : 150 ms QRS Dur : 088 ms QT Int : 450 ms P-R-T Axes : 050 060 039 degrees QTc Int : 468 ms NORMAL SINUS RHYTHM POSSIBLE LEFT ATRIAL ENLARGEMENT BORDERLINE ECG NO PREVIOUS ECGS AVAILABLE Confirmed by MD Jodie, Shoaib ([id number]) on 09/21/2019 1:35:25 PM Referred By: Confirmed By:Shoaib Feliciano MD
[2019-09-21] MEDS: PRENATAL VITAMINS W/ FOLIC ACID TABLET (FP) PO SCH (14:03)
[2019-09-21] MEDS: hydrOXYzine PAMOATE 25 MG CAPSULE (FP) PO SCH ×3 (14:03→23:00)
[2019-09-21] MEDS: NICOTINE 21 MG/24 HOURS TOPICAL PATCH TD SCH (14:03)
[2019-09-21] MEDS: chlordiazePOXIDE HCL 25 MG CAPSULE PO SCH ×2 (17:46→23:09)
[2019-09-21 18:12] LABS: HEMATOCRIT 35.1 % (32.4-45.2); MCH 25.2 pg (25.7-33.7); MCHC 31.3 g/dl (32.0-36.0); MEAN CELL VOLUME 80.4 fl (80-96); MEAN PLT VOLUME 9.2 fl (7.5-11.1); PLATELET COUNT 252 K/MM3 (134-434); RBC 4.37 M/mm3 (3.60-5.2); RDW 18.5 % (11.6-15.6); WHITE BLOOD COUNT 7.5 K/mm3 (4.0-10.0)
[2019-09-21 18:15] LABS: ALBUMIN 3.2 g/dl (3.4-5.0); BILIRUBIN,TOTAL 0.5 mg/dL (0.2-1); BLOOD UREA NITROGEN 18.2 mg/dL (7-18); CREATININE 0.9 mg/dL (0.55-1.3); POTASSIUM 4.2 mmol/L (3.5-5.1)
[2019-09-21 18:23] LABS: CALCIUM 8.3 mg/dL (8.5-10.1)
[2019-09-21] MEDS: MELATONIN 5 MG TABLETS PO SCH (22:59)
[2019-09-21] MEDS: THIAMINE HCL 100 MG TABLET (FP) PO SCH (23:00)
[2019-09-22] MEDS ORDERED: METHADONE HCL 10 MG TABLET ONE (04:52)
[2019-09-22] MEDS ORDERED: METHADONE HCL 40 MG DISPERSABLE TABLET ONE (04:53)
[2019-09-22] MEDS: chlordiazePOXIDE HCL 25 MG CAPSULE PO SCH ×4 (05:36→22:12)
[2019-09-22] MEDS: METHADONE 120 MG, METHADONE 30 MG PO SCH (05:36)
[2019-09-22] MEDS: hydrOXYzine PAMOATE 25 MG CAPSULE (FP) PO SCH ×5 (05:37→22:12)
[2019-09-22] MEDS ORDERED: METHADONE HCL 40 MG DISPERSABLE TABLET PO SCH (10:00)
[2019-09-22] MEDS: PRENATAL VITAMINS W/ FOLIC ACID TABLET (FP) PO SCH (10:11)
[2019-09-22] MEDS: NICOTINE 21 MG/24 HOURS TOPICAL PATCH TD SCH (10:12)
--- NOTE | 2019-09-22 11:50 | PN ---
S CIWA - CIWA Score Nausea/Vomitin-Mild Nausea/No Vomiting Muscle Tremors: 2 Anxiety: 2 Agitation: 2 Paroxysmal Sweats: 1-Minimal Palms Moist Orientation: 0-Oriented Tacttile Disturbances: 1-Very Mild Itch/Numbness Auditory Disturbances: 0-None Visual Disturbances: 2-Mild Sensitivity Headache: 1-Very Mild CIWA-Ar Total Score: 12 BHS Progress Note (SOAP) Subjective: 44 years old female admitted on 09/21/19 for alcohol withdrawal sx management treating with librium detox regiment received methadone 150 mg po today tired resting in bed Objective: 09/22/19 11:47 Vital Signs - 24 hr 09/21/19 09/21/19 09/21/19 13:16 17:00 20:58 Temperature 97.1 F L 97.3 F L 97.1 F L Pulse Rate 77 80 68 Respiratory 18 16 18 Rate Blood Pressure 130/82 128/85 153/99 O2 Sat by Pulse 99 98 Oximetry (%) 09/22/19 09/22/19 09/22/19 00:34 03:34 06:17 Temperature 97.3 F L Pulse Rate 71 Respiratory 18 18 18 Rate Blood Pressure 134/82 O2 Sat by Pulse 98 Oximetry (%) 09/22/19 08:57 Temperature 97.1 F L Pulse Rate 80 Respiratory 18 Rate Blood Pressure 111/67 O2 Sat by Pulse Oximetry (%) Laboratory Tests 09/21/19 09/21/19 09/21/19 12:10 12:10 12:10 WBC 7.5 RBC 4.37 Hgb 11.0 Hct 35.1 MCV 80.4 MCH 25.2 L MCHC 31.3 L RDW 18.5 H Plt Count 252 MPV 9.2 Sodium 137 Potassium 4.2 Chloride 103 Carbon Dioxide 21 Anion Gap 13 BUN 18.2 H Creatinine 0.9 Est GFR (CKD-EPI)AfAm 90.76 Est GFR (CKD-EPI)NonAf 78.31 Random Glucose 148 H Calcium 8.3 L Total Bilirubin 0.5 AST 23 ALT 20 Alkaline Phosphatase 126 H Total Protein 8.0 Albumin 3.2 L Syphilis Serology COVID-19 (NIKOLAY) HIV Ag/Ab Combo Qual Negative 09/21/19 09/21/19 12:10 14:15 WBC RBC Hgb Hct MCV MCH MCHC RDW Plt Count MPV Sodium Potassium Chloride Carbon Dioxide Anion Gap BUN Creatinine Est GFR (CKD-EPI)AfAm Est GFR (CKD-EPI)NonAf Random Glucose Calcium Total Bilirubin AST ALT Alkaline Phosphatase Total Protein Albumin Syphilis Serology Non-reactive COVID-19 (NIKOLAY) Not detected HIV Ag/Ab Combo Qual 09/22/19 11:47 glucose serum elevation 09/22/19 11:49 encourage weight loss fasting serum glucose 09/25/19 Assessment: 09/22/19 11:49 alcohol withdrawal Plan: librium regiment
--- NOTE | 2019-09-22 12:19 | CONSULT ---
[facility] Psychiatric Consult - Data Date of interview: 09/22/19 Admission source: [facility] Identifying data: Check Clerk approached patient for psychiatric consultation. Patient stated, " I'm too tired. Can we talk tomorrow." Psychiatric consultation refused. Please reorder consultation if requested by patient.
[2019-09-22] MEDS ORDERED: MASKS NR ONE (20:28)
[2019-09-22] MEDS: THIAMINE HCL 100 MG TABLET (FP) PO SCH (22:12)
[2019-09-22] MEDS: MELATONIN 5 MG TABLETS PO SCH (22:12)
[2019-09-23] MEDS ORDERED: METHADONE HCL 40 MG DISPERSABLE TABLET ONE (04:07)
[2019-09-23] MEDS ORDERED: METHADONE HCL 10 MG TABLET ONE (04:07)
[2019-09-23] MEDS: METHADONE 120 MG, METHADONE 30 MG PO SCH (05:53)
[2019-09-23] MEDS: hydrOXYzine PAMOATE 25 MG CAPSULE (FP) PO SCH ×5 (05:54→22:10)
[2019-09-23] MEDS: chlordiazePOXIDE HCL 25 MG CAPSULE PO SCH ×4 (05:54→22:10)
--- NOTE | 2019-09-23 09:59 | PN ---
S CIWA - CIWA Score Nausea/Vomitin-No Nausea/No Vomiting Muscle Tremors: 1-None Visible, but [place] Anxiety: 0-No Anxiety, at Ease Agitation: 0-Normal Activity Paroxysmal Sweats: 3 Orientation: 0-Oriented Tacttile Disturbances: 0-None Auditory Disturbances: 0-None Visual Disturbances: 0-None Headache: 2-Mild CIWA-Ar Total Score: 6 BHS Progress Note (SOAP) Subjective: Feel sweaty Objective: 09/23/19 09:58 Ms. Cordova is a 44 yo woman who presents stating " I want to get clean and sober and stay that way". She requests admission to detox from alcohol use disorder. She is on methadone maintenance. PMH: L45 herniated disc, bilateral carpal tunnel syndrome, hx of positive PPD/last chest xray September 2018 negative PSH: 2 ectopic pregnancies, umbilical hernia repair, lef thand tendon repair, gastric bypass Psych: schizophrenia (IM Invega 2 weeks ago, monthly injection) Substance use hx Alcohol: 3-4 pints Vodka daily, began age 15 y, last drink today at 3 am "watered down". No seizures. Has had black outs, last time was 4 months ago. 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 Has had 3 overdoses, last OD one year ago. Has Narcan at home Methadone: 150 mg [facility], medicated today Nicotine: 1ppd, began age 15y 09/23/19 10:01 PE Gnl: WDWN, in bed eating breakfast MS: normal Motor: normal coord: intact, mild tremor Home Medication List Medication Instructions Recorded Confirmed Type Methadone [Dolophine -] 150 mg PO DAILY 10/01/18 09/21/19 History Paliperidone Palmitate [Invega 39 mg IM MONTHLY 09/21/19 09/21/19 History Sustenna] Active Medications Generic Name Dose Route Start Last Admin Trade Name Freq PRN Reason Stop Dose Admin Acetaminophen 650 mg 09/21/19 12:09 Tylenol - PO Q6H PRN PAIN LEVEL 4 - 6 Acetaminophen 650 mg 09/21/19 12:09 Tylenol - PO Q6H PRN FEVER Al Hydroxide/Mg Hydroxide 30 ml 09/21/19 12:09 Mylanta Oral Suspension - PO Q6H PRN DYSPEPSIA Bismuth Subsalicylate 524 mg 09/21/19 12:09 Pepto-Bismol - PO Q1H PRN DIARRHEA Chlordiazepoxide HCl 25 mg 09/23/19 05:00 09/23/19 05:54 Librium - PO 09/23/19 23:01 25 mg R2H-KFS LIZETTE Administration Chlordiazepoxide HCl 25 mg 09/21/19 12:09 Librium - PO 09/23/19 23:59 Q4H PRN WITHDRAWAL(CONT SUBST) Chlordiazepoxide HCl 10 mg 09/24/19 05:00 Librium - PO 09/24/19 23:01 [id number] LIZETTE Chlordiazepoxide HCl 10 mg 09/25/19 05:00 Librium - PO 09/25/19 17:01 Q12H LIZETTE Chlordiazepoxide HCl 10 mg 09/24/19 00:00 Librium - PO 09/25/19 00:00 Q4H PRN WITHDRAWAL(CONT SUBST) Chlordiazepoxide HCl 10 mg 09/26/19 05:00 Librium - PO 09/26/19 05:01 ONCE@0500 ONE Eucalyptus/Menthol/Phenol/Sorbitol 1 each 09/21/19 12:09 Cepastat Lozenge - MM 09/27/19 12:09 Q4H PRN SORE THROAT Hydroxyzine Pamoate 25 mg 09/21/19 14:00 09/23/19 05:54 Vistaril - PO 09/27/19 12:09 25 mg Q4HWA LIZETTE Administration Ibuprofen 400 mg 09/21/19 12:09 Motrin - PO Q6H PRN PAIN LEVEL 1 - 3 Magnesium Citrate 300 ml 09/21/19 12:09 Citroma - PO Q48H PRN CONSTIPATION Magnesium Hydroxide 30 ml 09/21/19 12:09 Milk Of Magnesia - PO PRN PRN CONSTIPATION Melatonin 5 mg 09/21/19 22:00 09/22/19 22:12 Melatonin PO 5 mg HS LIZETTE Administration Methadone HCl 120 mg/ 150 mg 09/22/19 06:00 09/23/19 05:53 Methadone HCl 30 mg PO 09/28/19 06:01 150 mg DAILY@0600 LIZETTE Administration Methocarbamol 500 mg 09/21/19 12:09 Robaxin - PO 09/27/19 12:09 Q6H PRN MUSCLE SPASMS Nicotine 21 mg 09/21/19 12:30 09/22/19 10:12 Nicoderm Patch - TD 21 mg DAILY LIZETTE Administration Nicotine Polacrilex 2 mg 09/21/19 12:09 Nicorette Gum - BUC Q2H PRN NICOTINE REPLACEMENT RX Ondansetron HCl 4 mg 09/21/19 12:09 Zofran Odt - SL 09/27/19 12:10 Q12H PRN Nausea/Vomiting Multivit/Folic Acid/Iron 1 tab 09/21/19 12:15 09/22/19 10:11 Vitamins (Sjr) - PO 1 tab DAILY LIZETTE Administration Thiamine HCl 100 mg 09/21/19 22:00 09/22/19 22:12 Vitamin B1 - PO 100 mg HS LIZETTE Administration Laboratory Tests 09/21/19 09/21/19 09/21/19 12:10 12:10 12:10 WBC 7.5 RBC 4.37 Hgb 11.0 Hct 35.1 MCV 80.4 MCH 25.2 L MCHC 31.3 L RDW 18.5 H Plt Count 252 MPV 9.2 Sodium 137 Potassium 4.2 Chloride 103 Carbon Dioxide 21 Anion Gap 13 BUN 18.2 H Creatinine 0.9 Est GFR (CKD-EPI)AfAm 90.76 Est GFR (CKD-EPI)NonAf 78.31 Random Glucose 148 H Calcium 8.3 L Total Bilirubin 0.5 AST 23 ALT 20 Alkaline Phosphatase 126 H Total Protein 8.0 Albumin 3.2 L Syphilis Serology COVID-19 (NIKOLAY) HIV Ag/Ab Combo Qual Negative 09/21/19 09/21/19 12:10 14:15 WBC RBC Hgb Hct MCV MCH MCHC RDW Plt Count MPV Sodium Potassium Chloride Carbon Dioxide Anion Gap BUN Creatinine Est GFR (CKD-EPI)AfAm Est GFR (CKD-EPI)NonAf Random Glucose Calcium Total Bilirubin AST ALT Alkaline Phosphatase Total Protein Albumin Syphilis Serology Non-reactive COVID-19 (NIKOLAY) Not detected HIV Ag/Ab Combo Qual Vital Signs Temperature 97.3 F L 09/23/19 08:40 Pulse Rate 87 09/23/19 08:40 Respiratory Rate 16 09/23/19 08:40 Blood Pressure 108/71 09/23/19 08:40 O2 Sat by Pulse Oximetry (%) 99 09/23/19 05:49 Assessment: 06/26/20 10:03 1. Alcohol use disorder 2. Nicotine dependence 3. Methadone maintenance Plan: 1. Librium detox, projected completion 09/25 2. Methadone 150 mg daily, continue 3. Nicoderm patch
[2019-09-23] MEDS: PRENATAL VITAMINS W/ FOLIC ACID TABLET (FP) PO SCH (10:20)
[2019-09-23] MEDS: NICOTINE 21 MG/24 HOURS TOPICAL PATCH TD SCH (10:20)
[2019-09-23] MEDS: MELATONIN 5 MG TABLETS PO SCH (22:10)
[2019-09-23] MEDS: THIAMINE HCL 100 MG TABLET (FP) PO SCH (22:10)
[2019-09-24] MEDS ORDERED: chlordiazePOXIDE HCL 10 MG CAPSULE PO PRN
[2019-09-24] MEDS ORDERED: METHADONE HCL 40 MG DISPERSABLE TABLET ONE (04:34)
[2019-09-24] MEDS ORDERED: METHADONE HCL 10 MG TABLET ONE (04:34)
[2019-09-24] MEDS: METHADONE 120 MG, METHADONE 30 MG PO SCH (05:38)
[2019-09-24] MEDS: chlordiazePOXIDE HCL 10 MG CAPSULE PO SCH ×4 (05:38→22:37)
[2019-09-24] MEDS: hydrOXYzine PAMOATE 25 MG CAPSULE (FP) PO SCH ×5 (05:38→22:37)
[2019-09-24] MEDS: PRENATAL VITAMINS W/ FOLIC ACID TABLET (FP) PO SCH (10:12)
[2019-09-24] MEDS: NICOTINE 21 MG/24 HOURS TOPICAL PATCH TD SCH (10:14)
--- NOTE | 2019-09-24 11:39 | PN ---
[facility] CIWA - CIWA Score Nausea/Vomitin-No Nausea/No Vomiting Muscle Tremors: None Anxiety: 3 Agitation: 0-Normal Activity Paroxysmal Sweats: 3 Orientation: 0-Oriented Tacttile Disturbances: 0-None Auditory Disturbances: 0-None Visual Disturbances: 0-None Headache: 0-None Present CIWA-Ar Total Score: 6 BHS Progress Note (SOAP) Subjective: c/o sweats, anxiety, and irritability. Objective: 09/24/19 11:39 Vital Signs 09/24/19 09/24/19 06:18 08:57 Temperature 98.0 F 96.8 F L Pulse Rate 74 80 Respiratory 18 18 Rate Blood Pressure 119/66 120/64 O2 Sat by Pulse 97 Oximetry (%) Laboratory Last Values WBC 7.5 K/mm3 (4.0-10.0) 09/21/19 12:10 RBC 4.37 M/mm3 (3.60-5.2) 09/21/19 12:10 Hgb 11.0 GM/dL (10.7-15.3) 09/21/19 12:10 Hct 35.1 % (32.4-45.2) 09/21/19 12:10 MCV 80.4 fl (80-96) 09/21/19 12:10 MCH 25.2 pg (25.7-33.7) L 09/21/19 12:10 MCHC 31.3 g/dl (32.0-36.0) L 09/21/19 12:10 RDW 18.5 % (11.6-15.6) H 09/21/19 12:10 Plt Count 252 K/MM3 (134-434) 09/21/19 12:10 MPV 9.2 fl (7.5-11.1) 09/21/19 12:10 Sodium 137 mmol/L (136-145) 09/21/19 12:10 Potassium 4.2 mmol/L (3.5-5.1) 09/21/19 12:10 Chloride 103 mmol/L (98-107) 09/21/19 12:10 Carbon Dioxide 21 mmol/L (21-32) 09/21/19 12:10 Anion Gap 13 MMOL/L (8-16) 09/21/19 12:10 BUN 18.2 mg/dL (7-18) H 09/21/19 12:10 Creatinine 0.9 mg/dL (0.55-1.3) 09/21/19 12:10 Est GFR (CKD-EPI)AfAm 90.76 09/21/19 12:10 Est GFR (CKD-EPI)NonAf 78.31 09/21/19 12:10 Random Glucose 148 mg/dL (74-106) H 09/21/19 12:10 Calcium 8.3 mg/dL (8.5-10.1) L 09/21/19 12:10 Total Bilirubin 0.5 mg/dL (0.2-1) 09/21/19 12:10 AST 23 U/L (15-37) 09/21/19 12:10 ALT 20 U/L (13-61) 09/21/19 12:10 Alkaline Phosphatase 126 U/L (45-117) H 09/21/19 12:10 Total Protein 8.0 g/dl (6.4-8.2) 09/21/19 12:10 Albumin 3.2 g/dl (3.4-5.0) L 09/21/19 12:10 POC Urine HCG, Qual Negative 09/21/19 11:28 Syphilis Serology Non-reactive (NONREACTIVE) 09/21/19 12:10 COVID-19 (NIKOLAY) Not detected (Not Detected) 09/21/19 14:15 HIV Ag/Ab Combo Qual Negative (NEGATIVE) 09/21/19 12:10 Labs noted. Assessment: 09/24/19 11:39 AOX3, in no acute respiratory distress. Full ROM, ambulating in the unit. Withdrawal symptoms. Plan: continue detox.
[2019-09-24] MEDS: IBUPROFEN 400 MG TABLET (FP) PO PRN (13:42)
[2019-09-24] MEDS: THIAMINE HCL 100 MG TABLET (FP) PO SCH (22:37)
[2019-09-24] MEDS: MELATONIN 5 MG TABLETS PO SCH (22:37)
[2019-09-25] MEDS ORDERED: METHADONE HCL 40 MG DISPERSABLE TABLET ONE (04:37)
[2019-09-25] MEDS ORDERED: METHADONE HCL 10 MG TABLET ONE (04:37)
[2019-09-25] MEDS: METHADONE 120 MG, METHADONE 30 MG PO SCH (05:47)
[2019-09-25] MEDS: hydrOXYzine PAMOATE 25 MG CAPSULE (FP) PO SCH ×5 (05:47→22:21)
[2019-09-25] MEDS: chlordiazePOXIDE HCL 10 MG CAPSULE PO SCH ×2 (05:47→17:25)
[2019-09-25] MEDS: IBUPROFEN 400 MG TABLET (FP) PO PRN (06:01)
[2019-09-25] MEDS: PRENATAL VITAMINS W/ FOLIC ACID TABLET (FP) PO SCH (09:22)
[2019-09-25] MEDS: NICOTINE 21 MG/24 HOURS TOPICAL PATCH TD SCH (09:22)
--- NOTE | 2019-09-25 11:36 | PN ---
S CIWA - CIWA Score Nausea/Vomitin-Mild Nausea/No Vomiting Muscle Tremors: 2 Anxiety: 2 Agitation: 1-Slight > Activity Paroxysmal Sweats: No Perspiration Orientation: 0-Oriented Tacttile Disturbances: 0-None Auditory Disturbances: 0-None Visual Disturbances: 0-None Headache: 0-None Present CIWA-Ar Total Score: 6 BHS Progress Note (SOAP) Subjective: 44 years old female admitted on 09/21/19 for alcohol withdrawal sx management treating [facility] detox regiment sitting on the edge of the bed eating breakfast feeling better today prefers returning to own invega provider for next IM injection will return to methadone program for behavior and psychosocial therapies Objective: 09/25/19 11:38 Vital Signs - 24 hr 09/24/19 09/24/19 09/24/19 12:45 16:55 20:59 Temperature 97.1 F L 97.3 F L 96.8 F L Pulse Rate 72 80 84 Respiratory 18 16 16 Rate Blood Pressure 108/69 113/68 122/78 O2 Sat by Pulse 97 99 Oximetry (%) 09/25/19 09/25/19 09/25/19 00:30 03:30 06:24 Temperature 97.8 F Pulse Rate 71 Respiratory 18 18 18 Rate Blood Pressure 126/81 O2 Sat by Pulse 99 Oximetry (%) 09/25/19 09:17 Temperature 96.3 F L Pulse Rate 105 H Respiratory 16 Rate Blood Pressure 104/68 O2 Sat by Pulse Oximetry (%) Laboratory Tests 09/21/19 09/21/19 09/21/19 11:28 12:10 12:10 WBC 7.5 RBC 4.37 Hgb 11.0 Hct 35.1 MCV 80.4 MCH 25.2 L MCHC 31.3 L RDW 18.5 H Plt Count 252 MPV 9.2 Sodium Potassium Chloride Carbon Dioxide Anion Gap BUN Creatinine Est GFR (CKD-EPI)AfAm Est GFR (CKD-EPI)NonAf Random Glucose Calcium Total Bilirubin AST ALT Alkaline Phosphatase Total Protein Albumin POC Urine HCG, Qual Negative Syphilis Serology COVID-19 (NIKOLAY) HIV Ag/Ab Combo Qual Negative 09/21/19 09/21/19 09/21/19 12:10 12:10 14:15 WBC RBC Hgb Hct MCV MCH MCHC RDW Plt Count MPV Sodium 137 Potassium 4.2 Chloride 103 Carbon Dioxide 21 Anion Gap 13 BUN 18.2 H Creatinine 0.9 Est GFR (CKD-EPI)AfAm 90.76 Est GFR (CKD-EPI)NonAf 78.31 Random Glucose 148 H Calcium 8.3 L Total Bilirubin 0.5 AST 23 ALT 20 Alkaline Phosphatase 126 H Total Protein 8.0 Albumin 3.2 L POC Urine HCG, Qual Syphilis Serology Non-reactive COVID-19 (NIKOLAY) Not detected HIV Ag/Ab Combo Qual lab noted Assessment: 09/25/19 11:38 alcohol withdrawal Plan: librium regiment received methadone 150 mg po today
[2019-09-25] MEDS: THIAMINE HCL 100 MG TABLET (FP) PO SCH (22:21)
[2019-09-25] MEDS: MELATONIN 5 MG TABLETS PO SCH (22:21)
[2019-09-26] MEDS ORDERED: METHADONE HCL 40 MG DISPERSABLE TABLET ONE (04:01)
[2019-09-26] MEDS ORDERED: METHADONE HCL 10 MG TABLET ONE (04:01)
[2019-09-26] MEDS ORDERED: chlordiazePOXIDE HCL 10 MG CAPSULE PO ONE (05:00)
[2019-09-26] MEDS: hydrOXYzine PAMOATE 25 MG CAPSULE (FP) PO SCH (05:59)
[2019-09-26] MEDS: METHADONE 120 MG, METHADONE 30 MG PO SCH (05:59)
[2019-09-26 06:30] VITALS: BP 125/88; PULSE 113; TEMP 96.8
--- NOTE | 2019-09-26 11:46 | DS ---
[facility] Detox Discharge Summary Admission Date: 09/21/19 Discharge Date: 09/26/19 - History Present History: Alcohol Dependence Additional Comments: 44 years old female dmitted on 09/21/19 for alcohol withdrawal sx management treated with librium detox regiment received methadone 150 mg po today reject psychiatric evaluation due to "returning to methadone program" for monthly IM ms jordan has completed the librium regimen and is tolerated well alert oriented x 3 speech clearly coherently ambulating steady gaits cardiac s1s2 regular rate rhythm ekg indicated left atrial enlargement ms jordan denies chest pain no dizziness no shortness of breath respiratory clear lung sounds bilaterally on auscultation skin warm and dry Pertinent Past History: time for discharge 34 minutes ms jordan prefers returning to methadone maintenance program for mental and medical and behavioral and psychosocial therapies - Physical Exam Results Vital Signs: Vital Signs Temperature 96.8 F L 09/26/19 05:57 Pulse Rate 113 H 09/26/19 05:57 Respiratory Rate 18 09/26/19 05:57 Blood Pressure 125/88 09/26/19 05:57 O2 Sat by Pulse Oximetry (%) 98 09/26/19 05:57 Pertinent Admission Physical Exam Findings: alcohol withdrawal Laboratory Tests 09/21/19 09/21/19 09/21/19 11:28 12:10 12:10 WBC 7.5 RBC 4.37 Hgb 11.0 Hct 35.1 MCV 80.4 MCH 25.2 L MCHC 31.3 L RDW 18.5 H Plt Count 252 MPV 9.2 Sodium Potassium Chloride Carbon Dioxide Anion Gap BUN Creatinine Est GFR (CKD-EPI)AfAm Est GFR (CKD-EPI)NonAf Random Glucose Fasting Glucose Calcium Total Bilirubin AST ALT Alkaline Phosphatase Total Protein Albumin POC Urine HCG, Qual Negative Syphilis Serology COVID-19 (NIKOLAY) HIV Ag/Ab Combo Qual Negative 09/21/19 09/21/19 09/21/19 12:10 12:10 14:15 WBC RBC Hgb Hct MCV MCH MCHC RDW Plt Count MPV Sodium 137 Potassium 4.2 Chloride 103 Carbon Dioxide 21 Anion Gap 13 BUN 18.2 H Creatinine 0.9 Est GFR (CKD-EPI)AfAm 90.76 Est GFR (CKD-EPI)NonAf 78.31 Random Glucose 148 H Fasting Glucose Calcium 8.3 L Total Bilirubin 0.5 AST 23 ALT 20 Alkaline Phosphatase 126 H Total Protein 8.0 Albumin 3.2 L POC Urine HCG, Qual Syphilis Serology Non-reactive COVID-19 (NIKOLAY) Not detected HIV Ag/Ab Combo Qual 09/25/19 07:30 WBC RBC Hgb Hct MCV MCH MCHC RDW Plt Count MPV Sodium Potassium Chloride Carbon Dioxide Anion Gap BUN Creatinine Est GFR (CKD-EPI)AfAm Est GFR (CKD-EPI)NonAf Random Glucose Fasting Glucose 206 H Calcium Total Bilirubin AST ALT Alkaline Phosphatase Total Protein Albumin POC Urine HCG, Qual Syphilis Serology COVID-19 (NIKOLAY) HIV Ag/Ab Combo Qual - Treatment Hospital Course: Detox Protocol Followed, Detoxed Safely, Responded well, Di scharged Condition Good, Rehab Referral Accepted Patient has Accepted a Rehab Referral to: methadone maintenance program - Medication Discharge Medications: Ambulatory Orders Methadone [Dolophine -] 150 mg PO DAILY 10/01/18 Paliperidone Palmitate [Invega Sustenna] 39 mg IM MONTHLY 09/21/19 - Diagnosis (1) Alcohol dependence with uncomplicated withdrawal Status: Acute (2) Methadone maintenance therapy patient Status: Chronic (3) Schizophrenia Status: Chronic Qualifiers: Schizophrenia type: unspecified Qualified Code(s): F20.9 - Schizophrenia, unspecified (4) Positive PPD Status: Resolved (5) Substance induced mood disorder Status: Suspected (6) Nicotine use disorder Status: Acute - AMA Did Patient Leave Against Medical Advice: No CIWA Score - CIWA Score Nausea/Vomitin-No Nausea/No Vomiting Muscle Tremors: 2 Anxiety: 2 Agitation: 0-Normal Activity Paroxysmal Sweats: No Perspiration Orientation: 0-Oriented Tacttile Disturbances: 0-None Auditory Disturbances: 0-None Visual Disturbances: 0-None Headache: 0-None Present CIWA-Ar Total Score: 4
== END 2019-09-26 08:28 | disposition home or self-care (01) | DRG 897 ==
LOC: YASAS 10:21 → Y3N 11:32
PROVIDERS: ADMIT Allergy & Immunology; ATTEND Allergy & Immunology
PROC: HZ2ZZZZ Detoxification Services for Substance Abuse Treatment (ICD-10-PCS; principal; 2019-09-21)
DX: F10.230 Alcohol dependence with withdrawal, uncomplicated (principal); F11.20 Opioid dependence, uncomplicated; F17.210 Nicotine dependence, cigarettes, uncomplicated; F19.24 Other psychoactive substance dependence with psychoactive substance-induced mood disorder; F20.9 Schizophrenia, unspecified; R73.09 Other abnormal glucose; Z88.6 Allergy status to analgesic agent; Z98.84 Bariatric surgery status
CPT/HCPCS: 36415; 80053; 81025; 82947; 85027; 86780; 87389; 93005; 93010; U0003